=== PATIENT | female | born 1995 ===

== ENCOUNTER 2017-01-29 10:41 | Emergency (ER) | payer BC, OTHER ==
[2017-01-29 10:56] VITALS: TEMP 98.5; O2SAT 99
[2017-01-29 10:58] VITALS: BMI 23.1
--- NOTE | 2017-01-29 11:18 | C.PDOC ---
History Of Present Illness 21 yo female c/o left eyelid swelling that she noticed when she woke up this morning. (-)vision changes (-) eye discharge or tearing (-) fever (-)itching (- ) tongue or lip swelling (-) difficulty breathing or swallowing. Pt notes that she is currently taking Zpak (day 3) for a dental infection. No h/o of taking this medication before. Time Seen by Provider: 01/29/17 11:07 Chief Complaint (Nursing): ENT Problem History Per: Patient History/Exam Limitations: None Onset/Duration Of Symptoms: Hrs Current Symptoms Are (Timing): Still Present Past Medical History Vital Signs: Last Vital Signs Temp 98.5 F 01/29/17 10:49 Pulse 65 01/29/17 10:49 Resp 16 01/29/17 10:49 BP 104/69 01/29/17 10:49 Pulse Ox 99 01/29/17 11:30 Family History: States: Unknown Family Hx - Social History Hx Tobacco Use: No Hx Alcohol Use: No Hx Substance Use: No - Immunization History Hx Tetanus Toxoid Vaccination: No Hx Influenza Vaccination: No Hx Pneumococcal Vaccination: No Review Of Systems Except As Marked, All Systems Reviewed And Found Negative. Eyes: Positive for: Eyelid Inflammation Physical Exam - Physical Exam Appears: Well, Non-toxic, No Acute Distress, Other (speaking in full sentences) Skin: Normal Color, Warm, Dry Head: Atraumatic, Normacephalic Eye(s): bilateral: PERRL, EOMI, left: Eyelid Inflammation ((+) left eye lid swelling with pinpoint area of erythema- bite like. No fluctuance. No discharge. No lid margin pointing. No purulent discharge. ) Ear(s): Bilateral: Normal Nose: Normal Oral Mucosa: Moist Tongue: No Swelling Lips: No Swelling Throat: Normal, No Exudate, No Drooling Neck: Normal, Supple Chest: Symmetrical Cardiovascular: Rhythm Regular Respiratory: Normal Breath Sounds, No Accessory Muscle Use Back: Normal Inspection Extremity: Normal ROM Neurological/Psych: Oriented x3, Normal Speech ED Course And Treatment O2 Sat by Pulse Oximetry: 99 Progress Note: Discussed with pt possible causing including but not limited to bug bite reaction and medication reaction. Instructed to watch for signs of infection, change antibiotics and follow up with PMD in 1-2 days. Return to ER if symptoms persist or worsen. Disposition - Disposition Referrals: Clinic,Med Surg [Primary Care Provider] - Disposition: HOME/ ROUTINE Disposition Time: 11:18 Condition: STABLE Additional Instructions: Stop antibiotic you are taking. Watch for signs of infection including redness, swelling and discharge. If symptoms persist or worsen, return to eR right away. Prescriptions: Amoxicillin 875 mg PO BID #14 tablet DiphenhydrAMINE [Benadryl] 25 mg PO Q6 #20 cap predniSONE [Prednisone] 40 mg PO DAILY #8 tab Instructions: Insect Bite or Sting (ED) Forms: Work Excuse - Clinical Impression Clinical Impression: Allergic reaction
[2017-01-29 11:38] VITALS: BP 110/65; PULSE 62; RESP 18
== END 2017-01-29 11:35 | disposition home or self-care (01) ==
LOC: SUPCPDRO 10:41 → C.ER 10:41
DX: T78.40XA Allergy, unspecified, initial encounter (principal); X58.XXXA Exposure to other specified factors, initial encounter